=== PATIENT | female | born 1965 ===

== ENCOUNTER 2019-04-22 08:10 | Outpatient (CLI) | payer OTHER | END 2019-04-22 08:13 | disposition home or self-care (01) | LOC: MAMO-SONO 08:10 | DX: N64.89 Other specified disorders of breast (principal); Z12.31 Encounter for screening mammogram for malignant neoplasm of breast; K76.0 Fatty (change of) liver, not elsewhere classified ==

== ENCOUNTER 2019-04-27 12:27 | Outpatient (CLI) | payer OTHER | END 2019-04-27 12:38 | disposition home or self-care (01) | LOC: NUCLEAR 12:27 | DX: M81.0 Age-related osteoporosis without current pathological fracture (principal) ==